=== PATIENT | female | born 1975 | race Two or more races ===

== ENCOUNTER 2021-08-31 06:42 | Emergency (ER) | payer MEDICAID, OTHER ==
[~2021-08-31] VITALS: Ht 157.5 cm; Wt 81.6 kg
[2021-08-31] MEDS ORDERED: LABETALOL HCL 5 MG/ML 4ML SYRINGE IV ONE (07:30)
[2021-08-31 09:36] VITALS: BP 137/88
[2021-08-31] MEDS ORDERED: LORazepam 2MG/ML-1ML VIAL IV ONE (10:00)
[2021-08-31 10:28] LABS: Basophils # (auto) 0.1 10 ^3/uL (0-0.2); Basophils % (auto) 1.4 % (0.0-2.0); Eosinophils # (auto) 0 10 ^3/uL (0-0.8); Hematocrit 33.2 % (36.0-46.0); Hemoglobin 10.6 g/dL (12.2-16.2); Lymphocytes # (auto) 0.3 10 ^3/uL (0.4-5.4); Lymphocytes % (auto) 7.2 % (10.0-50.0); Mean Corpuscular Hemoglobin 23.4 pg (28.0-32.0); Mean Corpuscular Hgb Conc. 31.8 g/dL (32.0-36.0); Mean Corpuscular Volume 73.7 fL (80.0-100.0); Monocytes # (auto) 0.4 10 ^3/uL (0-1.3); Monocytes % (auto) 9.2 % (0.0-12.0); Neutrophils # (auto) 3.7 10 ^3/uL (1.6-8.6); Neutrophils % (auto) 82.2 % (37.0-80.0); Nucleated Red Blood Cells % 0.1 %; Red Blood Cells 4.51 10^6/uL (4.0-5.20); Red Cell Distribution Width 20.4 % (11.8-14.3); White Blood Cell 4.5 10^3/uL (4.4-10.8)
[2021-08-31 11:06] LABS: Albumin 3.5 g/dL (3.4-5.0); BUN/Creatinine Ratio 4.9; Bilirubin, Total 1.9 mg/dL (0.2-1.0); Total Protein 7.7 g/dL (6.4-8.2)
== END 2021-08-31 10:54 | disposition home or self-care (01) ==
LOC: EDBD 06:42 → ER 06:42
DX: S00.532A Contusion of oral cavity, initial encounter (principal); G40.89 Other seizures; I10 Essential (primary) hypertension; W18.39XA Other fall on same level, initial encounter; Y93.89 Activity, other specified; Y92.89 Other specified places as the place of occurrence of the external cause; Y99.8 Other external cause status
CPT/HCPCS: 36415; 70450; 80053; 85025; 96374; 96375; 99285; J2060; J3490

== ENCOUNTER 2021-11-04 00:11 | Emergency (ER) | payer MEDICAID ==
[~2021-11-04] VITALS: Ht 139.7 cm; Wt 74.8 kg
[2021-11-04] MEDS ORDERED: diazePAM 5 MG TAB PO ONE (01:45)
[2021-11-04 01:52] LABS: Albumin 3.4 g/dL (3.4-5.0); Calcium 8.4 mg/dL (8.5-10.1); Magnesium 2.1 mg/dL (1.6-2.6); Potassium 3.7 mmol/L (3.5-5.1); Salicylate < 1.7 mg/dL (2.8-20.0)
[2021-11-04 01:53] LABS: Acetaminophen < 2.0 ug/mL (10-30)
[2021-11-04 01:57] LABS: BUN/Creatinine Ratio 8.7; Bilirubin, Total 0.7 mg/dL (0.2-1.0)
[2021-11-04 02:05] LABS: Hematocrit 32.7 % (36.0-46.0); Hemoglobin 10.3 g/dL (12.2-16.2); Lymphocytes # (auto) 1.7 10 ^3/uL (0.4-5.4); Red Blood Cells 4.24 10^6/uL (4.0-5.20)
[2021-11-04 02:07] LABS: Basophils # (auto) 0.2 10 ^3/uL (0-0.2); Basophils % (auto) 4.4 % (0.0-2.0); Eosinophils # (auto) 0.2 10 ^3/uL (0-0.8); Eosinophils % (auto) 4.8 % (0.0-7.0); Lymphocytes % (auto) 32.4 % (10.0-50.0); Mean Corpuscular Hemoglobin 24.2 pg (28.0-32.0); Mean Corpuscular Hgb Conc. 31.4 g/dL (32.0-36.0); Mean Corpuscular Volume 77.1 fL (80.0-100.0); Monocytes # (auto) 0.5 10 ^3/uL (0-1.3); Monocytes % (auto) 8.8 % (0.0-12.0); Neutrophils # (auto) 2.5 10 ^3/uL (1.6-8.6); Neutrophils % (auto) 49.6 % (37.0-80.0); Nucleated Red Blood Cells % 0.2 %; Red Cell Distribution Width 19.9 % (11.8-14.3); White Blood Cell 5.1 10^3/uL (4.4-10.8)
[2021-11-04 02:18] LABS: INR 1.06 (0.9-1.15); Partial Thromboplastin Time 27.1 sec (23.6-33.0)
[2021-11-04] MEDS ORDERED: LORazepam 2MG/ML-1ML VIAL IV ONE (03:30)
[2021-11-04] MEDS ORDERED: ONDANSETRON HCL 4 MG/2 ML VIAL IV ONE (03:30)
[2021-11-04 04:01] LABS: Urine Bacteria NONE SEEN /hpf (None Seen); Urine Blood 2+ /uL (Negative); Urine Specific Gravity 1.014 (1.001-1.035); Urine WBC 3 /hpf (0 - 5)
[2021-11-04 04:04] LABS: Amphetamine Screen, Urine NEGATIVE (NEGATIVE); Barbiturate Scree,Urine NEGATIVE (NEGATIVE); Benzodiazephine Screen, Urine POSITIVE (NEGATIVE); Cannabinoid Screen, Urine NEGATIVE (NEGATIVE); Cocaine Screen, Urine NEGATIVE (NEGATIVE); Opiate Scree,Urine NEGATIVE (NEGATIVE); Phencyclidine Screen, Urine NEGATIVE (NEGATIVE)
[2021-11-04] MEDS ORDERED: amLODIPine BESYLATE 5 MG TAB PO ONE (07:00)
[2021-11-04 08:06] VITALS: BP 145/86
== END 2021-11-04 08:10 | disposition home or self-care (01) ==
LOC: EDBD 00:11 → ER 00:11
DX: R45.851 Suicidal ideations (principal); F41.9 Anxiety disorder, unspecified; F32.9 Major depressive disorder, single episode, unspecified; I10 Essential (primary) hypertension; R51.9 Headache, unspecified
CPT/HCPCS: 36415; 70450; 80053; 80307; 80320; 80329; 81001; 81025; 83735; 84484; 85025; 85610; 85730; 93005; 96374; 96375; 99285; J2060; J2405

== ENCOUNTER 2021-11-10 06:41 | Emergency (ER) | payer MEDICAID ==
[~2021-11-10] VITALS: Ht 144.8 cm; Wt 68.0 kg
[2021-11-10 07:39] VITALS: BP 167/97
[2021-11-10] MEDS ORDERED: KETOROLAC TROMETH 60MG/2ML VIAL IM ONE (08:15)
== END 2021-11-10 08:35 | disposition home or self-care (01) ==
LOC: ER 06:41
DX: S93.602A Unspecified sprain of left foot, initial encounter (principal); M10.9 Gout, unspecified; I10 Essential (primary) hypertension; X58.XXXA Exposure to other specified factors, initial encounter; Y93.89 Activity, other specified; Y92.89 Other specified places as the place of occurrence of the external cause; Y99.8 Other external cause status
CPT/HCPCS: 73630; 96372; 99283; J1885